=== PATIENT | female | born 1985 | race Caucasian/White ===

== ENCOUNTER 2017-06-26 11:05 | Observation (INO) | payer OTHER ==
[~2017-06-26] VITALS: Ht 170.2 cm; Wt 104.8 kg
[2017-06-28 13:41] VITALS: BP 106/60
[2017-06-29] MEDS ORDERED: PREN1TAB80 PO (12:17)
== END 2017-06-28 14:10 | disposition home or self-care (01) ==
LOC: 4S 06-28 11:50
PROVIDERS: ADMIT Obstetrics & Gynecology; ATTEND Obstetrics & Gynecology
DX: O26.893 Other specified pregnancy related conditions, third trimester (principal); N89.8 Other specified noninflammatory disorders of vagina; Z3A.39 39 weeks gestation of pregnancy
CPT/HCPCS: 59025; G0378

== ENCOUNTER 2017-06-29 10:10 | Inpatient (IN) | payer OTHER ==
[~2017-06-29] VITALS: Ht 170.2 cm; Wt 106.1 kg
[2017-06-29] MEDS ORDERED: RINGERS SOLUTION,LACTATED 1,000 ML IV ONE ×2 (11:04→12:38)
[2017-06-29] MEDS ORDERED: METOCLOPRAMIDE HCL 5 MG/ML 2 ML VIAL IVP ONE ×2 (11:15→22:16)
[2017-06-29] MEDS ORDERED: CITRIC ACID/SODIUM CITRATE 30 ML SOLUTION UDCUP PO ONE (11:15)
[2017-06-29 11:33] LABS: BASOPHILS % (AUTO) 0.4 % (0.0-2.0); EOSINOPHILS % (AUTO) 1.5 % (1.0-6.0); HEMOGLOBIN 11.6 g/dL (12.0-16.0); LYMPHOCYTES # (AUTO) 1.6 K/uL (1.0-4.8); LYMPHOCYTES % (AUTO) 16.7 % (22.0-44.0); MEAN CORPUSCULAR HGB CONC 32.2 G/dL (31.0-37.0); MEAN CORPUSCULAR VOLUME 68 fL (80-100); MONOCYTES # (AUTO) 0.5 K/uL (0.1-1.0); MONOCYTES % (AUTO) 4.7 % (2.0-9.0); NEUTROPHILS # (AUTO) 7.4 K/uL (1.8-7.7); NEUTROPHILS % (AUTO) 76.7 % (40.0-70.0); PLATELET COUNT (AUTO)-OB 170 K/uL (150-450); RED BLOOD CELL COUNT(AUTO) 5.29 MIL/uL (4.00-5.20); RED CELL DISTRIBUTION WIDTH 38.6 % (11.5-14.5)
[2017-06-29 11:42] VITALS: BP 110/59
[2017-06-29] MEDS ORDERED: PREN1TAB80 PO (12:17)
[2017-06-29] MEDS ORDERED: MORPHINE SULFATE/PF 1 MG/ML 10 ML AMP ONE (12:41)
[2017-06-29] MEDS ORDERED: ONDANSETRON HCL 4 MG/2 ML VIAL IVP PRN (13:15)
[2017-06-29] MEDS ORDERED: MEPERIDINE-PF 25 MG/ML SYRINGE IVP PRN (13:15)
[2017-06-29] MEDS ORDERED: DiphenhydrAMINE HCL 50 MG/ML VIAL IVP PRN (13:15)
[2017-06-29] MEDS ORDERED: FentaNYL CITRATE-PF 100 MCG/2 ML VIAL IVP PRN ×2 (13:15)
[2017-06-29] MEDS ORDERED: NALOXONE HCL 0.4 MG/ML VIAL IVP PRN (13:15)
[2017-06-29] MEDS ORDERED: HYDROmorphone 2 MG/ML SYRINGE IVP PRN (13:15)
[2017-06-29] MEDS ORDERED: OxyCODONE HCL/ACETAMINOPHEN 5-325 MG TABLET PO PRN (13:30)
[2017-06-29] MEDS ORDERED: ACETAMINOPHEN/CODEINE 300-30 MG TABLET PO PRN (13:45)
[2017-06-29] MEDS ORDERED: LANOLIN 7 GM OINTMENT TP PRN (13:45)
[2017-06-29] MEDS ORDERED: DEXTROSE 5%-0.45% SODIUM CHL 1,000 ML IV ONE (14:31)
[2017-06-29] MEDS: DEXTROSE 5%-0.45% SODIUM CHL 1,000 ML IV SCH ×3 (14:33→23:44)
[2017-06-29] MEDS ORDERED: OXYGEN THERAPY IH SCH ×2 (20:00)
[2017-06-29] MEDS ORDERED: LIDOCAINE HCL/PF 2% 5 ML SYRINGE IVP ONE (22:16)
[2017-06-29] MEDS ORDERED: OXYTOCIN 10 UNITS/ML VIAL IM ONE (22:16)
[2017-06-29] MEDS ORDERED: ONDANSETRON HCL 4 MG/2 ML VIAL IVP ONE (22:16)
[2017-06-29] MEDS ORDERED: KETOROLAC TROMETHAMINE 60 MG/2 ML VIAL IM ONE (22:16)
[2017-06-29] MEDS ORDERED: EPHEDrine SULFATE 50 MG/ML VIAL IM ONE (22:16)
[2017-06-29] MEDS ORDERED: DEXAMETHASONE SOD PHOS 4 MG/ML VIAL IVP ONE (22:16)
[2017-06-30] MEDS: DEXTROSE 5%-0.45% SODIUM CHL 1,000 ML IV SCH (03:44)
[2017-06-30] MEDS: ACETAMINOPHEN/CODEINE 300-30 MG TABLET PO PRN (08:07)
[2017-06-30] MEDS: MAGNESIUM HYDROXIDE SUSPENSION 30 ML UDCUP PO SCH ×2 (09:11→21:25)
[2017-06-30] MEDS: IBUPROFEN 800 MG TABLET PO SCH ×3 (10:02→21:25)
[2017-06-30] MEDS ORDERED: MIDAZOLAM HCL 2 MG/2 ML VIAL IVP ONE (12:00)
[2017-06-30] MEDS ORDERED: FentaNYL CITRATE-PF 100 MCG/2 ML VIAL IVP ONE (12:00)
[2017-07-01] MEDS: IBUPROFEN 800 MG TABLET PO SCH ×4 (03:55→21:31)
[2017-07-01] MEDS: ACETAMINOPHEN/CODEINE 300-30 MG TABLET PO PRN (07:55)
[2017-07-01] MEDS ORDERED: ROPIVACAINE HCL/PF 0.2% 100 ML ED ONE (08:34)
[2017-07-01] MEDS ORDERED: SENNA/DOCUSATE SODIUM 187-50 MG TABLET PO ONE (08:45)
[2017-07-01] MEDS: MAGNESIUM HYDROXIDE SUSPENSION 30 ML UDCUP PO SCH ×2 (09:26→21:31)
[2017-07-02] MEDS: IBUPROFEN 800 MG TABLET PO SCH ×2 (04:28→10:03)
[2017-07-02] MEDS ORDERED: IBUP-2071 PO ×2 (09:02→09:30)
[2017-07-02] MEDS ORDERED: DSS100 PO (09:04)
[2017-07-02] MEDS ORDERED: FERR-89 PO (09:15)
[2017-07-02] MEDS: MAGNESIUM HYDROXIDE SUSPENSION 30 ML UDCUP PO SCH (09:21)
[2017-07-02] MEDS ORDERED: ACET1TAB12 PO (09:32)
== END 2017-07-02 14:50 | disposition home or self-care (01) | DRG 766 ==
LOC: OBSVTOIN 10:10 → 4S 10:10
PROVIDERS: ADMIT Obstetrics & Gynecology; ATTEND Obstetrics & Gynecology
PROC: 10D00Z1 Extraction of Products of Conception, Low, Open Approach (ICD-10-PCS; principal; 2017-06-29)
DX: O34.211 Maternal care for low transverse scar from previous cesarean delivery (principal); Z37.0 Single live birth; Z3A.39 39 weeks gestation of pregnancy
CPT/HCPCS: 86850; 86900; 86901; 87081; J0690; J1100; J1885; J2250; J2405; J2590; J2765; J2795; J3010; J3490; J7120